=== PATIENT | male | born 1990 | race Two or more races ===

== ENCOUNTER 2020-11-23 15:31 | Emergency (ER) | payer OTHER, BC ==
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
== END 2020-11-23 17:35 | disposition home or self-care (01) ==
LOC: KA.ED 15:31
DX: M25.512 Pain in left shoulder (principal); M54.2 Cervicalgia; V29.9XXA Motorcycle rider (driver) (passenger) injured in unspecified traffic accident, initial encounter; Y92.410 Unspecified street and highway as the place of occurrence of the external cause
CPT/HCPCS: 70450; 72125; 73030-LT; 73130-LT; 99283; 99285-25

== ENCOUNTER 2020-12-28 00:32 | Emergency (ER) | payer OTHER, BC ==
[2020-12-28] MEDS ORDERED: Sodium Chloride 0.9% 10 ML Syringe FLUSH PRN (00:34)
[2020-12-28] MEDS ORDERED: Sodium Chloride 0.9% 1,000 ML IV ONE ×2 (00:37→01:50)
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
[2020-12-28 01:11] LABS: ANION GAP 16.7 mmol/L (5-15); CHLORIDE,CL 107 mmol/L (98-107); SODIUM,NA 142 mmol/L (136-145)
[2020-12-28 01:18] LABS: PTT,PARTIAL THROMBOPLSTIN TIME 23.4 SEC (22.8-31.4)
[2020-12-28] MEDS: Diphtheria,Pertussis(Acell),Tetanus Vaccine 0.5 ML Syringe IM ONE ×2 (01:25→04:59)
[2020-12-28] MEDS ORDERED: Iopamidol 755 Mg/ML 75 ML Bottle IVPUSH ONE (02:22)
[2020-12-28] MEDS ORDERED: Sodium Chloride 0.9% 50 ML IV SCH (02:30)
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
== END 2020-12-28 03:20 | disposition home or self-care (01) ==
LOC: KA.ED 00:32
DX: S20.211A Contusion of right front wall of thorax, initial encounter (principal); S40.211A Abrasion of right shoulder, initial encounter; S50.311A Abrasion of right elbow, initial encounter; S80.211A Abrasion, right knee, initial encounter; V20.4XXA Motorcycle driver injured in collision with pedestrian or animal in traffic accident, initial encounter
CPT/HCPCS: 36415; 70450; 71045; 71260; 72125; 73030-RT; 73070-RT; 73130-LT; 73562-RT; 73600-LT; 74177; 80053; 81001; 85025; 85610; 85730; 90715; 99283; 99285-25; J7030; Q9967

== ENCOUNTER 2021-06-14 19:30 | Emergency (ER) | payer BC, OTHER ==
[2021-06-14] MEDS: ceFAZolin 1 GM Vial IVPUSH ONE (22:12)
[2021-06-14] MEDS: Ibuprofen 600 MG Tab PO ONE (22:29)
[2021-06-14] MEDS: Acetaminophen/HYDROcodone 325-10 MG Tab PO ONE (22:40)
== END 2021-06-14 22:50 ==
LOC: KA.ED 19:30
DX: S62.624B Displaced fracture of middle phalanx of right ring finger, initial encounter for open fracture (principal); W23.0XXA Caught, crushed, jammed, or pinched between moving objects, initial encounter
CPT/HCPCS: 73140-F8; 96374; 99284-25; A9270-GY; J0690